=== PATIENT | female | born 1965 | race Native Hawaiian/Other Pacific Islander ===

== ENCOUNTER 2020-05-02 12:56 | Emergency (ER) | payer OTHER ==
[~2020-05-02] VITALS: Ht 172.7 cm; Wt 104.3 kg
[2020-05-02 13:02] VITALS: TEMP 97.3
[2020-05-02 15:45] LABS: PLATELET COUNT 231 K/uL (152-353)
[2020-05-02 15:51] LABS: POTASSIUM 3.1 mmol/L (3.6-5.2)
[2020-05-02 16:49] VITALS: BP 162/81
== END 2020-05-02 16:49 | disposition home or self-care (01) ==
LOC: ED 12:56
PROVIDERS: Hospitalist
DX: J06.9 Acute upper respiratory infection, unspecified (principal); R19.7 Diarrhea, unspecified; Z20.828 Contact with and (suspected) exposure to other viral communicable diseases
CPT/HCPCS: 80053; 85027; 87502; 87635; 87651; 96372; 99283; J1885; U0003